=== PATIENT | female | born 1980 | race African-American/Black ===

== ENCOUNTER 2018-08-01 00:35 | Emergency (ER) | payer OTHER ==
[2018-08-01 01:36] LABS: BASOPHIL % 0.5 % (0-2); CALCIUM 9.3 mg/dL (8.5-10.1); CHLORIDE SERUM 106 mmol/L (98-107); CREATININE SERUM 1.1 mg/dL (0.6-1.0); GFR1 59 mL/min; GLUCOSE SERUM 104 mg/dL (74-106); PLATELET COUNT 364 x10^3mcL (130-400); POTASSIUM SERUM 3.7 mmol/L (3.5-5.1); SODIUM SERUM 140 mmol/L (136-145)
[2018-08-01 01:43] LABS: ALBUMIN 3.8 g/dL (3.4-5.0); ALKALINE PHOSPHATASE 68 U/L (46-116); ALT/SGPT 12 U/L (14-59); AST/SGOT 10 U/L (15-37); BILIRUBIN TOTAL 0.25 mg/dL (0.20-1.00); TOTAL PROTEIN, SERUM 7.4 g/dL (6.4-8.2)
[2018-08-01 04:38] VITALS: BP 139/92
== END 2018-08-01 04:38 | disposition home or self-care (01) ==
LOC: ED 00:35
PROVIDERS: Emergency Medicine
DX: R07.89 Other chest pain (principal); T43.95XA Adverse effect of unspecified psychotropic drug, initial encounter; R41.82 Altered mental status, unspecified; G25.71 Drug induced akathisia; M62.838 Other muscle spasm; F20.9 Schizophrenia, unspecified; Z79.899 Other long term (current) drug therapy; Y92.89 Other specified places as the place of occurrence of the external cause
CPT/HCPCS: 83880; G0480; J1200; J1885; J2060; J2405; Q0092